=== PATIENT | female | born 1950 | race Caucasian/White ===

== ENCOUNTER 2021-02-06 09:27 | Day surgery (SDC) | payer MEDICARE, OTHER ==
[~2021-02-06] VITALS: Ht 165.1 cm; Wt 59.1 kg
[~2021-02-06 09:27] MED LIST: ESTR2 PO; LEVOTHYROXINE25 MC3 PO; Norco 10-325 T1 EACH PO; PROBIOTIC1 EAC1 PO; SELENIUM200 MC1 PO; VITAMIN D-32000 UNIT PO
--- NOTE | 2021-02-06 10:13 | NUR ---
02/06/21 1013 Latha Falcon PT USED SUTAB FOR PREP, LT YELLOW RESULTS.
== END 2021-02-06 11:30 | disposition home or self-care (01) ==
LOC: ORSCSDS 09:27
PROVIDERS: Internal Medicine Gastroenterology
PROC: 0DBC8ZX Excision of Ileocecal Valve, Via Natural or Artificial Opening Endoscopic, Diagnostic (ICD-10-PCS; principal; 2021-02-06 10:45)
DX: Z12.11 Encounter for screening for malignant neoplasm of colon (principal); Z86.010 Personal history of colon polyps; D12.0 Benign neoplasm of cecum; K57.30 Diverticulosis of large intestine without perforation or abscess without bleeding; Z79.899 Other long term (current) drug therapy
CPT/HCPCS: 88305; J2704; J7120

== ENCOUNTER 2024-02-15 11:21 | Day surgery (SDC) | payer MEDICARE, OTHER ==
[~2024-02-15] VITALS: Ht 165.1 cm; Wt 60.8 kg
[~2024-02-15 11:21] MED LIST changes: +Lactated Ringer's 1,000 ML IV ONE
[2024-02-15] MEDS ORDERED: Lactated Ringer's 1,000 ML IV ONE ×2 (11:52→12:50)
--- NOTE | 2024-02-15 11:54 | NUR ---
02/15/24 1154 Kayley Teague 1146 TIME OUT PERFORMED PRIOR TO DR. RAND INJECTING 9ML LIDOCAINE W/EPI [id number] AND 1ML SODIUM BICARB.
[2024-02-15] MEDS ORDERED: propofoL 20 ML IV ONE (12:03)
[2024-02-15 12:20] VITALS: BP 116/67
== END 2024-02-15 12:50 | disposition home or self-care (01) ==
LOC: ORSCSDS 11:21
PROVIDERS: Orthopaedic Surgery
PROC: 01N54ZZ Release Median Nerve, Percutaneous Endoscopic Approach (ICD-10-PCS; principal; 2024-02-15 12:45)
DX: G56.01 Carpal tunnel syndrome, right upper limb (principal); E78.5 Hyperlipidemia, unspecified; E03.9 Hypothyroidism, unspecified; Z79.899 Other long term (current) drug therapy
CPT/HCPCS: J2704; J7120